=== PATIENT | female | born 1990 | race Caucasian/White ===

== ENCOUNTER 2020-04-24 12:34 | Outpatient (CLI) | payer OTHER | END 2020-04-24 20:33 | disposition home or self-care (01) | LOC: SUS 12:34 | DX: Z34.02 Encounter for supervision of normal first pregnancy, second trimester (principal); Z3A.20 20 weeks gestation of pregnancy | CPT/HCPCS: 76805-TC ==

== ENCOUNTER 2020-05-28 07:35 | Outpatient (CLI) | payer OTHER ==
[2020-05-28 08:16] LABS: BASOPHILS % (AUTO) 0.5 % (0.0-2.0); EOSINOPHILS # (AUTO) 0.1 K/uL (0.0-0.4); EOSINOPHILS % (AUTO) 1.3 % (0.0-4.0); HEMATOCRIT 35.6 % (36-48); LYMPHOCYTES # (AUTO) 1.5 K/uL (1.0-5.5); LYMPHOCYTES % (AUTO) 16.3 % (20.5-51.5); MEAN CORPUSCULAR HEMOGLOBIN 31 pg (27-31); MEAN CORPUSCULAR HGB CONC 34 % (32-36); MEAN CORPUSCULAR VOLUME 91 fL (79.0-98.0); MONOCYTES # (AUTO) 0.5 K/uL (0.0-1.0); MONOCYTES % (AUTO) 5.4 % (1.7-9.3); NEUTROPHILS # (AUTO) 7.2 K/uL (1.8-7.7); NEUTROPHILS % (AUTO) 76.5 % (40.0-70.0); PLATELET COUNT (AUTO) 315 K/uL (130-430); RED BLOOD CELL COUNT(AUTO) 3.94 MIL/uL (4.2-6.2); RED CELL DISTRIBUTION WIDTH 14.1 % (9.0-15.0); WHITE BLOOD COUNT (AUTO) 9.5 K/uL (4.8-10.8)
== END 2020-05-28 20:18 | disposition home or self-care (01) ==
LOC: SLB 07:35
DX: O24.419 Gestational diabetes mellitus in pregnancy, unspecified control (principal); Z3A.00 Weeks of gestation of pregnancy not specified
CPT/HCPCS: 36415; 82947-TC; 83036; 85025; 86886; 86900; 86901

== ENCOUNTER 2020-07-23 13:09 | Outpatient (CLI) | payer OTHER | END 2020-07-23 19:58 | disposition home or self-care (01) | LOC: SUS 13:09 | DX: Z34.93 Encounter for supervision of normal pregnancy, unspecified, third trimester (principal); Z3A.33 33 weeks gestation of pregnancy | CPT/HCPCS: 76805-TC ==

== ENCOUNTER 2020-08-15 12:15 | Inpatient (IN) | payer OTHER ==
[~2020-08-15] VITALS: Ht 152.4 cm; Wt 86.2 kg
[~2020-08-15 12:15] MED LIST: BUPIVACAINE /DEX PF 0.75% SPINAL 2 ML AMP INJ ONE; GLYCOPYRROLATE 0.2 MG/ML VIAL IJ ONE; HEMABATE 250MCG/ML VIAL AMP IM ONE; LR 1,000 ML IV.SOLN IV ONE; MORPHINE SULFATE 10MG/10ML PF AMP EP ONE; NS IRRIG SOLN 1000 ML IR ONE; ONDANSETRON HCL 4 MG/2 ML VIAL IVP ONE; OXYTOCIN 10 UNIT/ML VIAL IV ONE
[2020-08-15] MEDS ORDERED: MAGNESIUM SULFATE IN WATER 100 ML IV ONE (12:30)
[2020-08-15] MEDS ORDERED: hydrALAZINE HCL 20 MG/ML VIAL IVP ONE ×3 (12:30→19:30)
[2020-08-15 12:45] LABS: BILIRUBIN,URINE NEGATIVE (NEGATIVE); BLOOD, URINE NEGATIVE (NEGATIVE); CLARITY/URINE SLIGHTLY HAZY (CLEAR); COLOR,URINE YELLOW (YELLOW); GLUCOSE,URINE NEGATIVE (NEGATIVE); KETONES,URINE NEGATIVE (NEGATIVE); LEUKOCYTE ESTERASE ,URINE TRACE (NEGATIVE); NITRITE, URINE NEGATIVE (NEGATIVE); PROTEIN URINE 1+ (NEGATIVE); UROBILINOGEN,URINE 0.2 (0.2-1.0)
[2020-08-15 12:49] LABS: BASOPHILS % (AUTO) 0.6 % (0.0-2.0); EOSINOPHILS # (AUTO) 0.1 K/uL (0.0-0.4); EOSINOPHILS % (AUTO) 1.1 % (0.0-4.0); HEMATOCRIT 35.7 % (36-48); HEMOGLOBIN 12.2 g/dL (12.0-16.0); LYMPHOCYTES # (AUTO) 1.6 K/uL (1.0-5.5); LYMPHOCYTES % (AUTO) 20.5 % (20.5-51.5); MEAN CORPUSCULAR HEMOGLOBIN 31 pg (27-31); MEAN CORPUSCULAR HGB CONC 34 % (32-36); MEAN CORPUSCULAR VOLUME 91 fL (79.0-98.0); MONOCYTES # (AUTO) 0.5 K/uL (0.0-1.0); MONOCYTES % (AUTO) 6.4 % (1.7-9.3); NEUTROPHILS # (AUTO) 5.6 K/uL (1.8-7.7); NEUTROPHILS % (AUTO) 71.4 % (40.0-70.0); PLATELET COUNT (AUTO) 188 K/uL (130-430); RED BLOOD CELL COUNT(AUTO) 3.92 MIL/uL (4.2-6.2); RED CELL DISTRIBUTION WIDTH 13.8 % (9.0-15.0); WHITE BLOOD COUNT (AUTO) 7.9 K/uL (4.8-10.8)
[2020-08-15] MEDS: LR 1,000 ML IV SCH (12:50)
[2020-08-15 12:55] LABS: BACTERIA,URINE MODERATE /HPF (None Seen); RBC,URINE 0-3 /HPF (0-3)
[2020-08-15 12:59] LABS: CALCIUM 8.6 mg/dL (8.4-11.0); CREATININE 0.91 mg/dL (0.55-1.30); POTASSIUM 4.6 mmol/L (3.5-5.1)
[2020-08-15 13:05] LABS: ALBUMIN 2.4 g/dL (3.4-4.8); TOTAL BILIRUBIN 0.2 mg/dL (0.0-1.0)
[2020-08-15] MEDS: MAGNESIUM SULFATE IN WATER 500 ML IV PRN ×2 (13:35→22:56)
[2020-08-15] MEDS ORDERED: NIFEdipine 30 MG TAB.ER.24 PO ONE (14:00)
[2020-08-15] MEDS: NIFEdipine 30 MG TAB.ER.24 PO SCH (14:17)
[2020-08-15] MEDS ORDERED: ONDANSETRON HCL 4 MG/2 ML VIAL ONE (21:07)
[2020-08-15] MEDS ORDERED: ONDANSETRON HCL 4 MG/2 ML VIAL IVP PRN (22:00)
[2020-08-16] MEDS: LR 1,000 ML IV SCH ×2 (00:40→16:28)
[2020-08-16] MEDS: NIFEdipine 30 MG TAB.ER.24 PO SCH ×2 (01:20→20:48)
[2020-08-16] MEDS ORDERED: hydrALAZINE HCL 20 MG/ML VIAL IVP ONE ×2 (01:45→03:00)
[2020-08-16 02:42] VITALS: BP_SYST 166
[2020-08-16] MEDS ORDERED: hydrALAZINE HCL 20 MG/ML VIAL ONE (06:21)
[2020-08-16] MEDS ORDERED: CEFAZOLIN 2 GM IVPB PREMIX 50 ML IV ONE (07:00)
[2020-08-16] MEDS ORDERED: LR 1,000 ML IV SCH ×2 (07:00→19:30)
[2020-08-16] MEDS ORDERED: HEMABATE 250MCG/ML VIAL AMP IM ONE (08:46)
[2020-08-16 09:12] VITALS: BP_SYST 104
[2020-08-16] MEDS ORDERED: NALOXONE HCL 0.4 MG/ML AMP (NARCAN) IVP PRN (09:30)
[2020-08-16] MEDS ORDERED: DIPHENHYDRAMINE HCL 25 MG CAPSULE PO PRN (09:30)
[2020-08-16] MEDS ORDERED: ONDANSETRON HCL 4 MG/2 ML VIAL IVP PRN (09:30)
[2020-08-16] MEDS ORDERED: KETOROLAC TROMETHAMINE 60 MG/2 ML VIAL IM PRN (09:30)
[2020-08-16] MEDS ORDERED: DIPHENHYDRAMINE INJ 50 MG/ML VIAL IVP PRN (09:30)
[2020-08-16] MEDS ORDERED: BISACODYL 10 MG/SUPPOSITORY RC PRN (19:30)
[2020-08-16] MEDS ORDERED: OXYTOCIN/0.9 % SODIUM CHLORIDE 1,000 ML IV ONE (19:30)
[2020-08-16] MEDS ORDERED: ANUSOL 1 EA SUPP.RECT (PREPARATION H) RC PRN (19:30)
[2020-08-16] MEDS ORDERED: OXYCODONE/ACETAMINOPHEN 5-325 TABLET PO PRN ×2 (19:30)
[2020-08-16] MEDS ORDERED: LANOLIN 7 GM OINT. TP PRN (19:30)
[2020-08-16] MEDS: MAGNESIUM SULFATE IN WATER 500 ML IV PRN (20:27)
[2020-08-16] MEDS: SIMETHICONE 80 MG TAB.CHEW PO PRN (20:48)
[2020-08-16] MEDS ORDERED: TEMAZEPAM 15 MG CAPSULE PO PRN (21:00)
[2020-08-16] MEDS ORDERED: SENNOSIDES/DOCUSATE SODIUM 1 TAB TABLET(SENOKOT-S) PO SCH (21:00)
[2020-08-17] MEDS ORDERED: MAGNESIUM SULFATE IN WATER 500 ML IV ONE (04:59)
[2020-08-17] MEDS ORDERED: MAGNESIUM SULFATE IN WATER 500 ML IV PRN (05:00)
[2020-08-17 08:05] LABS: BASOPHILS % (AUTO) 0.3 % (0.0-2.0); EOSINOPHILS # (AUTO) 0.1 K/uL (0.0-0.4); EOSINOPHILS % (AUTO) 0.9 % (0.0-4.0); HEMATOCRIT 31.4 % (36-48); HEMOGLOBIN 10.5 g/dL (12.0-16.0); LYMPHOCYTES # (AUTO) 1.4 K/uL (1.0-5.5); LYMPHOCYTES % (AUTO) 14.9 % (20.5-51.5); MEAN CORPUSCULAR HEMOGLOBIN 31 pg (27-31); MEAN CORPUSCULAR HGB CONC 33 % (32-36); MEAN CORPUSCULAR VOLUME 92 fL (79.0-98.0); MONOCYTES # (AUTO) 0.5 K/uL (0.0-1.0); MONOCYTES % (AUTO) 5.5 % (1.7-9.3); NEUTROPHILS # (AUTO) 7.5 K/uL (1.8-7.7); NEUTROPHILS % (AUTO) 78.4 % (40.0-70.0); PLATELET COUNT (AUTO) 196 K/uL (130-430); RED CELL DISTRIBUTION WIDTH 14.2 % (9.0-15.0); WHITE BLOOD COUNT (AUTO) 9.5 K/uL (4.8-10.8)
[2020-08-17] MEDS: NIFEdipine 30 MG TAB.ER.24 PO SCH (09:34)
[2020-08-17] MEDS: SIMETHICONE 80 MG TAB.CHEW PO PRN (12:18)
[2020-08-17] MEDS: DOCUSATE SODIUM 100 MG CAPSULE PO SCH ×2 (12:18→21:18)
[2020-08-17] MEDS: IBUPROFEN 600 MG TABLET PO SCH ×3 (12:19→23:37)
[2020-08-17] MEDS: LABETALOL HCL 100 MG TABLET PO SCH (21:13)
[2020-08-18] MEDS: IBUPROFEN 600 MG TABLET PO SCH (06:00)
[2020-08-18] MEDS: DOCUSATE SODIUM 100 MG CAPSULE PO SCH (08:58)
[2020-08-18] MEDS: LABETALOL HCL 100 MG TABLET PO SCH (09:00)
== END 2020-08-18 12:10 | disposition home or self-care (01) | DRG 788 ==
LOC: SPU 12:15 → OBSVTOIN 20:07 → SPU 08-16 06:00
PROVIDERS: ADMIT Obstetrics & Gynecology; ATTEND Obstetrics & Gynecology
PROC: 10D00Z1 Extraction of Products of Conception, Low, Open Approach (ICD-10-PCS; principal; 2020-08-16 08:00)
DX: O14.94 Unspecified pre-eclampsia, complicating childbirth (principal); O69.81X0 Labor and delivery complicated by cord around neck, without compression, not applicable or unspecified; Z20.822 Contact with and (suspected) exposure to COVID-19; Z3A.36 36 weeks gestation of pregnancy; Z37.0 Single live birth
CPT/HCPCS: 36415; 80053; 81000; 85025; G0378; J0360; J0690; J1885; J2274; J2405; J2590; J3475; J3490; J7120